=== PATIENT | female | born 1990 | race Caucasian/White ===

== ENCOUNTER 2017-12-02 08:47 | Emergency (ER) | payer OTHER ==
[~2017-12-02] VITALS: Ht 172.7 cm; Wt 102.1 kg
[~2017-12-02 08:47] MED LIST: ALBU8I INH; DICL50TA2 PO; METHO500 PO
[2017-12-02 08:52] VITALS: BP 145/80; PULSE 83; RESP 16; TEMP 98.5
--- NOTE | 2017-12-02 09:03 | PD ---
HPI Chief Complaint: ENT Complaint Time Seen by Provider: 08:57 Travel History International Travel<30 days: No Contact w/Intl Traveler<30days: No Traveled to known affect area: No History of Present Illness HPI This is a 27-year-old female who presents here complaining of sore throat and difficulty swallowing for the last 2 days. Patient denies any fevers chills or night sweats. She reports earache that comes and goes for the last 2 days as well. Denies any nausea vomiting or diarrhea denies any cough or shortness of breath no chest pain. PFSH Past Medical History Asthma: Yes (IN CHILDHOOD ONLY) Cardiovascular Problems: Yes (HEART MURMUR A CHILD) Diminished Hearing: No Respiratory: Yes (asthma) Immunizations Current: Yes Tetanus Vaccination: Unknown ?: Not LMP: 11/14/17 Menopausal: No Past [facility] Social History Alcohol Use: Yes ("COUPLE TIMES PER MONTH") Tobacco Use: No (QUIT 08/2015) Substance Use: No Allergies-Medications (Allergen,Severity, Reaction): Coded Allergies: adhesive (Unverified Allergy, Severe, Hives, 12/02/17) Reported Meds & Prescriptions Reported Meds & Active Scripts Active No Active Prescriptions or Reported Medications Review of Systems Except as stated in HPI: all other systems reviewed are Neg Physical Exam Narrative GENERAL: Well-nourished, well-developed patient. SKIN: Focused skin assessment warm/dry. HEAD: Normocephalic. EYES: No scleral icterus. No injection or drainage. Throat: Mild erythema of the tonsils bilaterally, swelling but no exudate or bleeding. Airways patent uvula midline. NECK: Supple, trachea midline. No JVD or lymphadenopathy. CARDIOVASCULAR: Regular rate and rhythm without murmurs, gallops, or rubs. RESPIRATORY: Breath sounds equal bilaterally. No accessory muscle use. GASTROINTESTINAL: Abdomen soft, non-tender, nondistended. MUSCULOSKELETAL: No cyanosis, or edema. BACK: Nontender without obvious deformity. No CVA tenderness. Data Data Last Documented VS Vital Signs Date Time Temp Pulse Resp B/P (MAP) Pulse Ox O2 Delivery O2 Flow Rate FiO2 12/02/17 08:52 98.5 83 16 145/80 (101) Orders Orders Group A Rapid Strep Screen (12/02/17 09:00) Strep Culture (Group A) (12/02/17 09:02) MDM Medical Decision Making Medical Screen Exam Complete: Yes Emergency Medical Condition: Yes Differential Diagnosis Pharyngitis, tonsillitis, sinusitis. Narrative Course This is a 27-year-old female who presents here complaining of sore throat and difficulty swallowing. Physical exam remarkable for erythema without exudate of the tonsils. I believe this patient will benefit from a course of antibiotics and she can follow up with her primary care physician. Diagnosis Primary Impression: Tonsillitis Additional Instructions: Gargle with salt water, take Tylenol for fever, return to ER if symptoms change not improve. Scripts Amoxicillin (Amoxicillin) 500 Mg Cap 500 MG PO BID for Infection for 7 Days, #14 CAP 0 Refills Prov: Yeyo Mirza MD 12/02/17 Disposition: 01 DISCHARGE HOME Condition: Stable Yeyo Mirza MD Dec 02, 2017 09:03
[2017-12-02] MEDS ORDERED: AMOX500C PO (09:32)
== END 2017-12-02 09:40 | disposition home or self-care (01) ==
LOC: PHEFT 08:47
DX: J03.90 Acute tonsillitis, unspecified (principal); Z87.891 Personal history of nicotine dependence
CPT/HCPCS: 87081; 87880; 99283